=== PATIENT | male | born 1965 | race Native Hawaiian/Other Pacific Islander ===

== ENCOUNTER 2022-05-29 20:02 | Emergency (ER) | payer OTHER ==
[~2022-05-29] VITALS: Ht 165.1 cm; Wt 64.9 kg
[2022-05-29 20:08] VITALS: TEMP 98.7
[2022-05-29 20:58] LABS: PLATELET COUNT 586 K/uL (142-355)
[2022-05-29 21:13] LABS: POTASSIUM 4.2 mmol/L (3.6-5.2)
[2022-05-30 03:00] VITALS: BP 136/75
[2022-05-30] MEDS ORDERED: ASPIRIN 8181 MG PO (11:20)
[2022-05-30] MEDS ORDERED: LIPITOR10 MG PO (11:21)
[2022-05-30] MEDS ORDERED: LEVO-T150 MCG PO (11:22)
[2022-05-30] MEDS ORDERED: BUPROPION HYDR100 MG PO (11:22)
[2022-05-30] MEDS ORDERED: GLUCERN1 PO (11:23)
[2022-05-30] MEDS ORDERED: TAMS0.4C PO (11:24)
[2022-05-30] MEDS ORDERED: AMBIEN CR12.5 MG PO (11:25)
[2022-05-30] MEDS ORDERED: ARGINAID1 PAK PO (11:26)
[2022-05-30] MEDS ORDERED: CALCIUM 502 PO (11:26)
[2022-05-30] MEDS ORDERED: CLON0.5T36 PO (11:27)
[2022-05-30] MEDS ORDERED: DIVALPROEX125 MG PO (11:27)
[2022-05-30] MEDS ORDERED: FERROUS SULF325 M1 PO (11:28)
[2022-05-30] MEDS ORDERED: INSUSUS SC (11:29)
[2022-05-30] MEDS ORDERED: QUET25TA2 PO (11:30)
[2022-05-30] MEDS ORDERED: ACIDOPHILU6 PO (11:30)
[2022-05-30] MEDS ORDERED: JANUMET1 TAB PO (11:31)
[2022-05-30] MEDS ORDERED: SODIUM BICAR650 MG PO (11:31)
[2022-05-30] MEDS ORDERED: GABA400C2 PO (11:32)
[2022-05-30] MEDS ORDERED: INSULIN LI100 UNIT/1 SC (11:35)
[2022-05-30] MEDS ORDERED: DULCOLAX10 MG RE ×2 (11:36→11:37)
[2022-05-30] MEDS ORDERED: FLEET ENEMA RE (11:38)
[2022-05-30] MEDS ORDERED: [UNRECOGNIZED DRUG - OTHER] PO (11:41)
[2022-05-30] MEDS ORDERED: DULCOLAX M400 MG/5 M PO (11:42)
[2022-05-30] MEDS ORDERED: OXYCODONE HCL15 MG PO (11:43)
[2022-05-30] MEDS ORDERED: MILK OF MA400 MG/5 M PO (11:43)
[2022-05-30] MEDS ORDERED: PRAMOXINE TOP (11:46)
[2022-05-30] MEDS ORDERED: HYDROCORTISONE TOP (11:46)
[2022-05-30] MEDS ORDERED: PAIN RELIEF325 MG PO (11:47)
[2022-05-31] MEDS ORDERED: METF500T PO (20:00)
[2022-05-31] MEDS ORDERED: CALCIUM 600 + D PO (20:05)
[2022-05-31] MEDS ORDERED: [UNRECOGNIZED DRUG - CODE] PO (20:07)
== END 2022-05-30 03:00 | disposition still patient (30) ==
LOC: ED 20:02
PROVIDERS: Emergency Medicine Emergency Medical Services
DX: R46.89 Other symptoms and signs involving appearance and behavior (principal); R73.9 Hyperglycemia, unspecified; Z11.52 Encounter for screening for COVID-19; Z04.6 Encounter for general psychiatric examination, requested by authority
CPT/HCPCS: 36415; 80053; 85027; 87635; 93005; 96360; 96372; 96374; 99284; J1815; U0003

== ENCOUNTER 2022-05-31 05:26 | Observation (INO) | payer OTHER ==
[~2022-05-31] VITALS: Ht 167.6 cm; Wt 63.6 kg
[2022-05-31 05:26] VITALS: BP 75/44; TEMP 97.6
[~2022-05-31 05:26] MED LIST: ACIDOPHILU6 PO; AMBIEN CR12.5 MG PO; ARGINAID1 PAK PO; ASPIRIN 8181 MG PO; BUPROPION HYDR100 MG PO; CALCIUM 502 PO; CLON0.5T36 PO; DIVALPROEX125 MG PO; DULCOLAX M400 MG/5 M PO; DULCOLAX10 MG RE; FERROUS SULF325 M1 PO; FLEET ENEMA RE; GABA400C2 PO; GLUCERN1 PO; HYDROCORTISONE TOP; INSULIN LI100 UNIT/1 SC; INSUSUS SC; JANUMET1 TAB PO; LEVO-T150 MCG PO; LIPITOR10 MG PO; MILK OF MA400 MG/5 M PO; OXYCODONE HCL15 MG PO; PAIN RELIEF325 MG PO; PRAMOXINE TOP; QUET25TA2 PO; SODIUM BICAR650 MG PO; TAMS0.4C PO; [UNRECOGNIZED DRUG - OTHER] PO
[2022-05-31 07:03] LABS: PLATELET COUNT 476 K/uL (142-355); POTASSIUM 3.6 mmol/L (3.6-5.2)
[2022-05-31 07:04] LABS: PARTIAL THROMBOPLASTIN TIME 29.2 SECONDS (24.5-33.6)
[2022-05-31 08:00] VITALS: BP 119/53
[2022-05-31 08:30] VITALS: BP 111/58
[2022-05-31 15:23] VITALS: BP 112/76; TEMP 97.9; Ht 167.6 cm; Wt 63.6 kg
[2022-05-31 16:00] VITALS: BP 110/67; TEMP 98.5
[2022-05-31 19:55] VITALS: BP 105/59; TEMP 99.6
[2022-05-31] MEDS ORDERED: METF500T PO (20:00)
[2022-05-31] MEDS ORDERED: CALCIUM 600 + D PO (20:05)
[2022-05-31] MEDS ORDERED: [UNRECOGNIZED DRUG - CODE] PO (20:07)
[2022-06-01] VITALS: BP 100/60; TEMP 100
[2022-06-01 03:38] VITALS: BP 114/79; TEMP 97.8
[2022-06-01 08:00] VITALS: BP 95/52; TEMP 98.3
[2022-06-01] MEDS ORDERED: LEVAQUIN250 MG PO ×2 (08:03→11:55)
[2022-06-05] MEDS ORDERED: DULCOLAX 5MG TAB PO (11:13)
[2022-06-05] MEDS ORDERED: ENTERIC COATED325 MG PO (11:13)
[2022-06-05] MEDS ORDERED: WELLBUTRIN100 M1 PO (11:13)
[2022-06-05] MEDS ORDERED: ATOR20TA2 PO (11:13)
[2022-06-05] MEDS ORDERED: ACET-206 PO (11:13)
[2022-06-05] MEDS ORDERED: COLL250O TOP (11:16)
[2022-06-05] MEDS ORDERED: CLON0.5T36 PO (11:16)
[2022-06-05] MEDS ORDERED: Depakote Sprinkles 1 PO (11:16)
[2022-06-05] MEDS ORDERED: FERROUS SULF325 MG PO (11:16)
[2022-06-05] MEDS ORDERED: INSU100P SC (11:17)
[2022-06-05] MEDS ORDERED: HYDR5TAB9 PO (11:17)
[2022-06-05] MEDS ORDERED: GABA400C2 PO (11:17)
[2022-06-05] MEDS ORDERED: LEVOFLOXACIN500 MG PO (11:18)
[2022-06-05] MEDS ORDERED: INSUINJ47 SC (11:18)
[2022-06-05] MEDS ORDERED: LEVO0.0723 PO (11:18)
[2022-06-05] MEDS ORDERED: TAMS0.4C PO (11:19)
[2022-06-05] MEDS ORDERED: SODI650T PO (11:19)
[2022-06-05] MEDS ORDERED: METF500T PO (11:19)
== END 2022-06-01 13:16 | disposition short-term general hospital (02) ==
LOC: ED 05:26 → MED/SURG 08:07
PROVIDERS: Emergency Medicine; ADMIT Internal Medicine; ATTEND Internal Medicine
PROC: 06HN33Z Insertion of Infusion Device into Left Femoral Vein, Percutaneous Approach (ICD-10-PCS; principal; 2022-05-31)
PROC: 0YHB33Z Insertion of Infusion Device into Left Lower Extremity, Percutaneous Approach (ICD-10-PCS; 2022-05-31)
PROC: 0T9B70Z Drainage of Bladder with Drainage Device, Via Natural or Artificial Opening (ICD-10-PCS; 2022-05-31)
DX: E11.649 Type 2 diabetes mellitus with hypoglycemia without coma (principal); I95.89 Other hypotension; N39.0 Urinary tract infection, site not specified; N40.0 Benign prostatic hyperplasia without lower urinary tract symptoms; E03.8 Other specified hypothyroidism; E11.42 Type 2 diabetes mellitus with diabetic polyneuropathy; E78.49 Other hyperlipidemia; I73.1 Thromboangiitis obliterans [Buerger's disease]; M86.68 Other chronic osteomyelitis, other site; F31.30 Bipolar disorder, current episode depressed, mild or moderate severity, unspecified; E83.42 Hypomagnesemia; Z89.512 Acquired absence of left leg below knee; Z89.511 Acquired absence of right leg below knee; R46.4 Slowness and poor responsiveness; B96.5 Pseudomonas (aeruginosa) (mallei) (pseudomallei) as the cause of diseases classified elsewhere; T80.218A Other infection due to central venous catheter, initial encounter; B96.4 Proteus (mirabilis) (morganii) as the cause of diseases classified elsewhere; Y84.8 Other medical procedures as the cause of abnormal reaction of the patient, or of later complication, without mention of misadventure at the time of the procedure; Y92.89 Other specified places as the place of occurrence of the external cause
CPT/HCPCS: 36558; 36600; 51702; 80053; 81000; 82550; 82805; 82948; 83605; 83735; 84100; 84443; 84484; 85027; 85610; 85730; 87040; 87070; 87077; 87086; 87088; 87186; 87635; 93005; 96360; 96361; 96365; 96366; 96367; 96372; 96374; 96375; 99220; 99285; C1768; G0378; J0696; J2270; J3475; J7060; U0003